=== PATIENT | female | born 1945 | race Caucasian/White ===

== ENCOUNTER → 2017-08-14 | Outpatient (CLI) | payer OTHER | END | disposition home or self-care (01) | LOC: M.RAD 08-08 09:27 | DX: M25.561 Pain in right knee (principal); S83.281A Other tear of lateral meniscus, current injury, right knee, initial encounter; S83.231A Complex tear of medial meniscus, current injury, right knee, initial encounter; M84.351A Stress fracture, right femur, initial encounter for fracture; X58.XXXA Exposure to other specified factors, initial encounter; Y93.89 Activity, other specified; Y92.89 Other specified places as the place of occurrence of the external cause; Y99.8 Other external cause status ==